=== PATIENT | male | born 1975 | race Caucasian/White ===

== ENCOUNTER 2022-06-23 09:33 | Emergency (ER) | payer BC, SELFPAY ==
[2022-06-23 10:05] VITALS: BP 133/110; TEMP 36.9; O2SAT 97
[2022-06-23 10:07] VITALS: BP 133/110; PULSE 106; RESP 18; O2SAT 97
[2022-06-23 10:16] VITALS: BP 134/96; O2SAT 97
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
== END 2022-06-23 10:36 | disposition home or self-care (01) ==
PROVIDERS: Emergency Provider Nurse Practitioner Family
DX: L30.9 Dermatitis, unspecified (principal)
CPT/HCPCS: 99281